=== PATIENT | female | born 1970 | race Hispanic/Latino ===

== ENCOUNTER 2020-07-08 20:36 | Observation (INO) | payer OTHER ==
[~2020-07-08] VITALS: Ht 152.4 cm; Wt 73.0 kg
[2020-07-08 21:03] LABS: APPEARANCE,URINE Clear (CLEAR); BILIRUBIN,URINE Small (NEGATIVE); COLOR,URINE Dark Yellow (YELLOW); GLUCOSE, URINE (UA) Negative (NEGATIVE); KETONES,URINE Negative (NEGATIVE); LEUKOCYTE ESTERASE ,URINE Negative (NEGATIVE); NITRATE,URINE Negative (NEGATIVE); OCCULT BLOOD,URINE Negative (NEGATIVE); PH,URINE 5.5 (5.0-8.0); PROTEIN,URINE Negative (NEGATIVE)
[2020-07-08 21:13] LABS: BACTERIA,URINE Few /HPF (None Seen); MUCUS,URINE Rare LPF (None Seen); RBC,URINE 0-1 /HPF (0-1); SQUAMOUS EPITHELIAL CELL,UR Few /HPF (0-2); WBC,URINE 0-1 /HPF (0-1)
[2020-07-08] MEDS ORDERED: MORPHINE SULFATE 4 MG/1ML SYG ONE (21:54)
[2020-07-08] MEDS ORDERED: ONDANSETRON HCL 4 MG/2 ML VIAL ONE (21:54)
[2020-07-08 21:55] LABS: BASOPHILS % (AUTO) 0.4 % (0.0-5.0); EOSINOPHILS % (AUTO) 1.6 % (0.0-8.0); LYMPHOCYTES % (AUTO) 16.3 % (21.0-51.0); MEAN CORPUSCULAR HEMOGLOBIN 27.7 pg (27.0-33.0); MEAN CORPUSCULAR HGB CONC 32.3 g/dL (32.0-36.0); MEAN CORPUSCULAR VOLUME 85.8 fL (79-99); MONOCYTES % (AUTO) 8.4 % (3.0-13.0); NEUTROPHILS % (AUTO) 72.9 % (40.0-77.0); PLATELET COUNT (AUTO) 340 K/uL (130-400); RED BLOOD CELL COUNT(AUTO) 5.01 MIL/uL (4.00-5.50); RED CELL DISTRIBUTION WIDTH 13.5 % (11.0-15.5); WHITE BLOOD COUNT (AUTO) 9.3 K/uL (4.8-10.8)
[2020-07-08 22:04] LABS: CREATININE 0.9 mg/dL (0.5-1.5); POTASSIUM 3.8 mmol/L (3.5-5.1)
[2020-07-08 22:08] LABS: ALBUMIN 3.7 g/dL (3.5-5.0); TOTAL PROTEIN, SERUM 8.5 g/dL (6.0-8.3)
[2020-07-09] MEDS ORDERED: ACETAMINOPHEN 325 MG TAB PO PRN ×2 (03:00)
[2020-07-09] MEDS ORDERED: ONDANSETRON HCL 4 MG/2 ML VIAL IV PRN (03:00)
[2020-07-09] MEDS ORDERED: MEPERIDINE-PF 25 MG/ML SYG IV PRN (03:00)
[2020-07-09] MEDS ORDERED: ZOSYN 3.375GM+NS 50ML 50 ML IV ONE (04:18)
[2020-07-09 04:33] LABS: BASOPHILS % (AUTO) 0.4 % (0.0-5.0); EOSINOPHILS % (AUTO) 2.3 % (0.0-8.0); HEMATOCRIT 40.6 % (36-48); LYMPHOCYTES % (AUTO) 24.4 % (21.0-51.0); MEAN CORPUSCULAR HEMOGLOBIN 28.1 pg (27.0-33.0); MEAN CORPUSCULAR HGB CONC 32.8 g/dL (32.0-36.0); MEAN CORPUSCULAR VOLUME 85.8 fL (79-99); NEUTROPHILS % (AUTO) 62.8 % (40.0-77.0); PLATELET COUNT (AUTO) 314 K/uL (130-400); RED BLOOD CELL COUNT(AUTO) 4.73 MIL/uL (4.00-5.50); RED CELL DISTRIBUTION WIDTH 13.6 % (11.0-15.5); WHITE BLOOD COUNT (AUTO) 7.1 K/uL (4.8-10.8)
[2020-07-09 04:49] LABS: ALANINE AMINOTRANSFERASE 444 U/L (12-78); ALBUMIN 3.3 g/dL (3.5-5.0); ASPARTATE AMINOTRANSFERASE 481 U/L (10-37); BILIRUBIN,TOTAL 0.7 mg/dL (0.2-1.0); CARBON DIOXIDE 29 mmol/L (21-32); CHLORIDE 105 mmol/L (101-111); CREATININE 0.8 mg/dL (0.5-1.5); GLOMERULAR FILTR. RATE CALC 80 mL/min (>60); GLUCOSE,RANDOM 105 mg/dL (70-105); POTASSIUM 3.6 mmol/L (3.5-5.1); SODIUM SERUM 138 mmol/L (136-145); TOTAL PROTEIN, SERUM 7.6 g/dL (6.0-8.3); UREA NITROGEN, BLOOD 16 mg/dL (7-18)
[2020-07-09] MEDS: ZOSYN 3.375GM+NS 50ML 50 ML IV SCH ×3 (05:00→21:59)
[2020-07-09] MEDS ORDERED: FAMOTIDINE/PF 20 MG/2 ML VIAL IV ONE (09:28)
[2020-07-09 12:03] VITALS: BP 123/73
[2020-07-09] MEDS: SODIUM CHLORIDE 0.9% 1000ML 1,000 ML IV SCH ×2 (13:08→22:00)
[2020-07-09] MEDS: FAMOTIDINE/PF 20 MG/2 ML VIAL IV SCH ×2 (13:10→21:59)
[2020-07-09] MEDS ORDERED: FLU VACC QS2020-21(6MOS UP)/PF 60 MCG/0.5 ML ML IM SCH (14:15)
[2020-07-09] MEDS ORDERED: FLU VACC QS2020-21(6MOS UP)/PF 60 MCG/0.5 ML ML IM ONE (14:15)
[2020-07-09 18:50] VITALS: BP 129/75
[2020-07-09 20:00] VITALS: BP 127/70
[2020-07-10] VITALS: BP_SYST 116; BP_SYST 122; BP_DIAS 65; BP_DIAS 68
[2020-07-10 04:17] VITALS: BP 116/65
[2020-07-10 05:21] LABS: BASOPHILS % (AUTO) 0.6 % (0.0-5.0); HEMATOCRIT 42.7 % (36-48); LYMPHOCYTES % (AUTO) 23.1 % (21.0-51.0); MEAN CORPUSCULAR HGB CONC 32.6 g/dL (32.0-36.0); MEAN CORPUSCULAR VOLUME 86.1 fL (79-99); MONOCYTES % (AUTO) 9.2 % (3.0-13.0); NEUTROPHILS % (AUTO) 61.8 % (40.0-77.0); PLATELET COUNT (AUTO) 319 K/uL (130-400); RED BLOOD CELL COUNT(AUTO) 4.96 MIL/uL (4.00-5.50); RED CELL DISTRIBUTION WIDTH 13.6 % (11.0-15.5); WHITE BLOOD COUNT (AUTO) 7.8 K/uL (4.8-10.8)
[2020-07-10 05:47] LABS: ALBUMIN 3.2 g/dL (3.5-5.0); BILIRUBIN,TOTAL 0.8 mg/dL (0.2-1.0); POTASSIUM 3.6 mmol/L (3.5-5.1); TOTAL PROTEIN, SERUM 7.7 g/dL (6.0-8.3)
[2020-07-10] MEDS: ZOSYN 3.375GM+NS 50ML 50 ML IV SCH (05:48)
[2020-07-10 08:25] VITALS: BP 128/66
[2020-07-10 09:14] LABS: HEPATITIS A ANTIBODY IGM Negative (Negative); HEPATITIS B CORE IGM Negative (Negative); HEPATITIS Bs ANTIGEN SCREEN P Negative (Negative)
[2020-07-10] MEDS: FAMOTIDINE/PF 20 MG/2 ML VIAL IV SCH (09:20)
[2020-07-10 11:00] VITALS: BP 144/81
== END 2020-07-10 17:30 | disposition home or self-care (01) ==
LOC: EDH 20:36 → INTOOBSV 20:37 → EDHIP 20:37 → 3DH 07-09 11:42
PROVIDERS: ADMIT Internal Medicine; ATTEND Internal Medicine
DX: K80.20 Calculus of gallbladder without cholecystitis without obstruction (principal); R11.2 Nausea with vomiting, unspecified; R19.7 Diarrhea, unspecified; L80 Vitiligo; R74.01 Elevation of levels of liver transaminase levels; Z23 Encounter for immunization
CPT/HCPCS: 36415 ×3; 74181; 76705; 78226; 80053 ×3; 80074; 81001; 83690; 84145; 85025 ×3; 90471; 96365; 96366 ×2; 96375; 96376 ×2; 99284; A9537; G0378 ×38; J2270; J2405; J2543 ×4; J3490 ×4; J7030; Q2035

== ENCOUNTER 2020-08-24 07:02 | Observation (INO) | payer SELFPAY ==
[~2020-08-24] VITALS: Ht 152.4 cm; Wt 72.6 kg
[2020-08-24] VITALS (17 sets, daily range): BP systolic 114–144; BP diastolic 51–71
[2020-08-24 08:20] LABS: BASOPHILS % (AUTO) 0.8 % (0.0-5.0); EOSINOPHILS % (AUTO) 3.5 % (0.0-8.0); LYMPHOCYTES % (AUTO) 27.6 % (21.0-51.0); MEAN CORPUSCULAR HEMOGLOBIN 27.4 pg (27.0-33.0); MEAN CORPUSCULAR VOLUME 85.6 fL (79-99); MONOCYTES % (AUTO) 7.9 % (3.0-13.0); NEUTROPHILS % (AUTO) 59.9 % (40.0-77.0); PLATELET COUNT (AUTO) 313 K/uL (130-400); RED BLOOD CELL COUNT(AUTO) 5.26 MIL/uL (4.00-5.50); RED CELL DISTRIBUTION WIDTH 13.7 % (11.0-15.5); WHITE BLOOD COUNT (AUTO) 6.3 K/uL (4.8-10.8)
[2020-08-24] MEDS ORDERED: ONDANSETRON HCL 4 MG/2 ML VIAL ONE ×3 (08:23→13:08)
[2020-08-24] MEDS ORDERED: SODIUM CHLORIDE 0.9% 1000ML 1,000 ML IV ONE (08:23)
[2020-08-24] MEDS ORDERED: MORPHINE SULFATE 4 MG/1ML SYG ONE (08:29)
[2020-08-24 08:33] LABS: ALBUMIN 3.8 g/dL (3.5-5.0); BILIRUBIN,TOTAL 0.5 mg/dL (0.2-1.0); CREATININE 0.7 mg/dL (0.5-1.5); POTASSIUM 4.5 mmol/L (3.5-5.1); TOTAL PROTEIN, SERUM 8.2 g/dL (6.0-8.3)
[2020-08-24] MEDS ORDERED: ZOSYN 3.375GM+NS 50ML 50 ML IV ONE (09:36)
[2020-08-24 09:56] LABS: BILIRUBIN,URINE Negative (NEGATIVE); COLOR,URINE Yellow (YELLOW); GLUCOSE, URINE (UA) Negative (NEGATIVE); KETONES,URINE Negative (NEGATIVE); LEUKOCYTE ESTERASE ,URINE Negative (NEGATIVE); NITRATE,URINE Negative (NEGATIVE); OCCULT BLOOD,URINE Negative (NEGATIVE); PH,URINE 5.5 (5.0-8.0); PROTEIN,URINE Negative (NEGATIVE); UROBILINOGEN,URINE 0.2 mg/dL (0.2-1.0)
[2020-08-24] MEDS ORDERED: LACTATED RINGERS 1000ML 1,000 ML IV ONE (09:57)
[2020-08-24 09:59] LABS: APPEARANCE,URINE CLEAR (CLEAR)
[2020-08-24] MEDS ORDERED: BUPIVACAINE/PF 0.5% 30ML VIAL ONE (11:26)
[2020-08-24] MEDS ORDERED: LIDOCAINE PF 2% 5ML ABBOJECT ONE (12:32)
[2020-08-24] MEDS ORDERED: SUCCINYLCHOLINE CHLORIDE 20 MG/ML 10 ML VIAL ONE (12:32)
[2020-08-24] MEDS ORDERED: PROPOFOL 10 MG/ML 20ML VIAL IV ONE (12:32)
[2020-08-24] MEDS ORDERED: ROCURONIUM 10MG/1ML SYR 10 MG/ML ML ONE (12:33)
[2020-08-24] MEDS ORDERED: FENTANYL CITRATE PF 50 MCG/1 ML 2ML VIAL ONE (12:33)
[2020-08-24] MEDS ORDERED: GLYCOPYRROLATE 1 MG/5 ML SYRINGE ONE (12:54)
[2020-08-24] MEDS ORDERED: NEOSTIGMINE 5MG/5ML SYR IV ONE (13:08)
[2020-08-24] MEDS ORDERED: KETOROLAC TROMETHAMINE 30MG/ML ONE (13:08)
[2020-08-24] MEDS ORDERED: MEPERIDINE-PF 25 MG/ML SYG ONE (13:48)
== END 2020-08-24 16:00 | disposition home or self-care (01) ==
LOC: EDH 07:02 → EDHIP 07:03 → OBSVTOIN 07:03 → INTOOBSV 07:03
PROVIDERS: ADMIT Surgery; ATTEND Surgery
DX: K81.0 Acute cholecystitis (principal); R11.2 Nausea with vomiting, unspecified
CPT/HCPCS: 36415; 47562; 80053; 81003; 82550; 83690; 84484; 85025; 88304; 93005; 96360; 96361; 99284; A4216; A4222; A4223; A4600; A4649 ×2; A4930; C1769 ×3; G0378 ×5; J0330; J1885; J2001; J2175; J2270; J2405 ×3; J2543; J2704; J2710; J3010; J3490 ×2; J7030 ×2; J7120 ×2